=== PATIENT | male | born 1985 | race Caucasian/White ===

== ENCOUNTER 2021-02-12 11:47 | Emergency (ER) | payer BC, SELFPAY ==
[2021-02-12 11:50] VITALS: BP 134/70; PULSE 62; RESP 16; TEMP 36.5; O2SAT 100
--- NOTE | 2021-02-12 12:00 | RT.EKG_ITS ---
APPROVED REPORT Exam: Resting ECG Reason for Exam: syncope Patient Location: E HR:59 bpm ECG Measurements Heart Rate 59 AXIS KS 212 P 78 QRSd 98 QRS 94 QT 414 T 59 QTc 409 Conclusion Sinus bradycardia...rate< 60 Prolonged KS interval...KS >210, V-rate 50- 90 ST elev, probable normal early repol pattern...ST elevation, age<55. Sinus. Early Repol. No STEMI. I have reviewed and interpreted ECG and agree with software generated interpretation.
--- NOTE | 2021-02-12 12:04 | W.ED.GENAD ---
Discharge Plan Disposition Patient Disposition: HOME Condition: Improving Discharge Details Clinical Impression: Vasovagal syncope ED Provider: June Vegas Home Meds and New Rx's Prescriptions: No Action No Known Home Meds RF: 0 Discharge Instructions Instructions: Syncope (ED) Additional Instructions: Drink plenty of fluids and get plenty of rest. Alternate tylenol and motrin as needed and directed for pain. You will receive a call from care management regarding a follow-up appoint with the primary care doctor to establish care and for reevaluation. Return immediately to the emergency department if you develop any worsening or new concerning symptoms. 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 No STEMI, nondiagnostic. Vitals within normal limits. No acute findings on exam. No focal deficits. Suspect most likely vasovagal syncope. Will place an IV, bolus IV fluids, screening labs, chest x-ray, obtain orthostatic vital signs and reassess. Labs and imaging reviewed and unremarkable. Normal troponin. Chest x-ray negative. Orthostatic vital signs negative. Patient reassessed and he feels much better. Patient placed on care management list to help arrange for a follow-up appointment with the primary care doctor for reevaluation and to establish care. Usual and customary return precautions given prior to discharge. Medical Records Medical records reviewed: Yes I reviewed the patient's medical records. Imaging Data Radiologic Study: Radiologist's impression: XR CHEST 2V PA LATERAL CLINICAL HISTORY: syncope, r/o acute disease. TECHNIQUE: 2D digital imaging was performed. COMPARISON: No exams were available for comparison FINDINGS: Heart size is normal. The mediastinum is not widened. Lungs are clear. No infiltrates nor pleural effusions. IMPRESSION: No acute pulmonary findings. Lab Data Lab results reviewed: Yes I reviewed the patient's lab results. Labs: Laboratory Tests Range/Units 02/12/21 02/12/21 02/12/21 12:13 12:13 12:27 WBC (4.4-10.8) 10^3/uL 8.25 RBC (4.36-5.78) 10^6/uL 5.40 Hgb (13.5-17.5) g/dL 15.9 Hct (40.0-50.0) % 48.1 MCV (80-95) fL 89.1 MCH (27.0-33.0) pg 29.4 MCHC (32.0-36.0) % 33.1 RDW (11.8-14.1) % 12.3 Plt Count (130-400) 10^3/uL 247 MPV (8.0-11.0) fL 10.2 Immature Gran % 0.2 Neutrophils % 71.2 Lymphocytes % 23.6 Monocytes % 4.6 Eosinophils % 0.2 Basophils % 0.2 Nucleated RBC % % 0 Absolute Neutrophils (1.2-6.7) 10^3/uL 5.86 Absolute Lymphocytes (1.2-3.4) 10^3/uL 1.95 Absolute Monocytes (0.1-0.8) 10^3/uL 0.38 Absolute Eosinophils (0.0-0.7) 10^3/uL 0.02 Absolute Basophils (0.0-0.2) 10^3/uL 0.02 Sodium (136-145) mmol/L 140 Potassium (3.5-5.1) mmol/L 3.9 Chloride (98-107) mmol/L 102 Carbon Dioxide (21.0-32.0) mmol/L 32.0 Anion Gap (3-11) mmol/L 6.0 BUN (7-18) mg/dL 12 Creatinine (0.70-1.30) mg/dL 1.0 Estimated GFR/1.73 m2 (mL/min/1.73m2) >= 60.00 Glucose (74-106) mg/dL 106 Calcium (8.5-10.1) mg/dL 9.4 Total Bilirubin (0.2-1.0) mg/dL 1.5 H AST (15-37) U/L 18 ALT (16-63) U/L 21 Alkaline Phosphatase (46-116) U/L 62 Troponin I (<0.06) ng/mL < 0.05 Total Protein (6.4-8.2) g/dL 8.3 H Albumin (3.4-5.0) g/dL 4.5 ECG Data Attestation: I personally reviewed and interpreted this ECG (s) as follows: Interpretation: Rate of 59, sinus, prolonged VA interval. Benign early repolarization pattern. VA 212. QRS 98. QTc 409. HPI General Mode of arrival: ambulatory. Date/Time Provider Initiated Documentation: 02/12/21 12:01. Limitations to Documentation: no limitations. Information obtained by: patient. HPI Narrative: Patient is a 35-year-old male with no significant past medical history presents after syncopal episode just prior to arrival. 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 Patient states he was sitting in a chair when he suddenly became lightheaded and nauseous seeing this picture and then passed out. This was seen by other people in the class and they confirm helped lower him to the ground. They deny any report of injury. Bystanders say he was passed out for approximately 5 seconds. Patient remembers coming to when laying on the ground. He states he is currently asymptomatic. He does admit to a previous history of syncope while mowing the lawn out in the heat several years ago. He denies any recent illness, fever, new medications or injury. Prior to and during this episode today, he denies any chest pain, palpitations, shortness of breath, vomiting, headache or neck pain. Related Data Home Medications Medication Instructions Recorded Confirmed Unknown [No Known Home Meds] 02/12/21 02/12/21 Allergies Allergy/AdvReac Type Severity Reaction Status Date / Time No Known Allergies Allergy Verified 02/12/21 11:54 General Stated Complaint: Dizzy/Sync ROHINI: 3 Review of Systems All systems reviewed & are unremarkable except as noted in HPI and below Constitutional Constitutional: Reports as per HPI, Denies chills and Denies fever(s) Eyes Eyes: Denies blurry vision ENT Ears, Nose, Mouth, and Throat: Denies dizziness, Denies sore throat and Denies throat swelling Cardiovascular Cardiovascular: Denies chest pain and Denies dyspnea Respiratory Respiratory: Denies cough and Denies dyspnea Gastrointestinal Gastrointestinal: Denies abdominal pain, Denies diarrhea and Denies vomiting Genitourinary Genitourinary: Denies hematuria and Denies dysuria Musculoskeletal Musculoskeletal: Denies back pain and Denies numbness Integumentary/Breasts Skin/Breast: Denies lesions and Denies rash Neurologic Neurologic: Denies dizziness, Denies localized weakness and Denies numbness Allergic/Immunologic Allergic/Immunologic: Denies throat swelling [facility] Medical History (Updated 02/12/21 @ 14:28 by June Vegas DO) No significant past medical history Surgical History (Updated 02/12/21 @ 13:33 by June Vegas DO) No significant past surgical history Social History Smoking/Tobacco Use Status: Never Smoking risk assessment performed?: Yes Alcohol Intake: current Alcohol Intake frequency: 0-2 drinks per day Alcohol type: beer Drug use: Never Substance use type: does not use Do you feel safe at home: Yes Do you feel safe in your relationship?: Yes Exam Const General: cooperative, healthy appearing and no acute distress HENMT Head: normal to inspection Ears: hearing grossly normal bilaterally, external ears normal and TM's normal bilaterally General nose exam: external nose normal Face and sinus: normal facial exam Eyes General: appearance normal, both eyes and all related structures Pupils: PERRL EOM: EOM intact bilaterally Neck Neck: normal visual inspection and No submandibular swelling Lymphatic: no lymphadenopathy noted Chest Chest: normal inspection of the chest and no tenderness Resp Effort & Inspection: normal respiratory effort and able to speak in complete sentences Auscultation: clear to auscultation bilaterally Cardio Rate: regular rate Rhythm: regular rhythm GI Inspection: normal to inspection Palpation: soft, not firm, not rigid and nontender Auscultation: normal bowel sounds Skin General skin exam: no rashes or lesions noted Neuro General: patient alert, patient awake, patient oriented x3, moves all extremities, no meningeal signs and no focal motor deficits Cranial Nerves: CN's II-XI intact bilaterally Cognition: normal cognition Speech: speech normal Motor: muscle tone normal throughout, strength 5/5 throughout and no pronator drift Sensory Exam: no sensory deficits noted Extrem General: normal to inspection, full ROM, capillary refill normal, no calf tenderness bilaterally and no edema Psych Appearance: grossly normal Mental Status: mental status grossly normal Speech and Movement: speech and movement normal Affect: normal affect Course Vital Signs Vital signs: Vital Signs Temperature 97.7 F 02/12/21 11:50 Pulse 62 02/12/21 11:50 Respiratory Rate 16 02/12/21 11:50 Blood Pressure 134/70 02/12/21 11:50 Pulse Oximetry 100 02/12/21 11:50 Temperature 97.7 F 02/12/21 11:50 Temperature Source Temporal Artery Scan 02/12/21 11:50 Pulse 62 02/12/21 11:50 Respiratory Rate 16 02/12/21 11:50 Respiratory Effort Non-Labored 02/12/21 11:55 Blood Pressure 134/70 02/12/21 11:50 Blood Pressure Position Sitting 02/12/21 11:50 Pulse Oximetry 100 02/12/21 11:50 Oxygen Delivery Method Room Air 02/12/21 11:50 Oxygen Flow Rate 0 02/12/21 11:50 Pain Level 0 02/12/21 11:50
[2021-02-12 12:24] VITALS: PULSE 64; RESP 10
[2021-02-12 12:25] VITALS: BP 135/70; PULSE 64; RESP 14
--- NOTE | 2021-02-12 12:30 | DI.RAD_ITS ---
Exam(s) XR CHEST 2V PA LATERAL EXAM: XR CHEST 2V PA LATERAL CLINICAL HISTORY: syncope, r/o acute disease. TECHNIQUE: 2D digital imaging was performed. COMPARISON: No exams were available for comparison FINDINGS: Heart size is normal. The mediastinum is not widened. Lungs are clear. No infiltrates nor pleural effusions. IMPRESSION: No acute pulmonary findings. DATA REPOSITORY: RADIATION DOSE DELIVERED:
[2021-02-12 12:32] LABS: Abs Immature Grans 0.02 10^3/uL (0.0-0.06); Absolute Basophil Count 0.02 10^3/uL (0.0-0.2); Absolute Eosinophil Count 0.02 10^3/uL (0.0-0.7); Absolute Lymphocyte Count 1.95 10^3/uL (1.2-3.4); Absolute Monocyte Count 0.38 10^3/uL (0.1-0.8); Absolute Neutrophil Count 5.86 10^3/uL (1.2-6.7); Basophils % 0.2; Eosinophils % 0.2; HCT 48.1 % (40.0-50.0); HGB 15.9 g/dL (13.5-17.5); Immature Grans % 0.2; Lymphocytes % 23.6; MCH 29.4 pg (27.0-33.0); MCHC 33.1 % (32.0-36.0); MCV 89.1 fL (80-95); MPV 10.2 fL (8.0-11.0); Monocytes % 4.6; Neutrophils % 71.2; Nucleated RBC 0 %; Platelet Count 247 10^3/uL (130-400); RDW 12.3 % (11.8-14.1); RDW-SD 40.4 fL; WBC 8.25 10^3/uL (4.4-10.8)
[2021-02-12 12:47] LABS: ALT 21 U/L (16-63); AST 18 U/L (15-37); Albumin 4.5 g/dL (3.4-5.0); Alkaline Phosphatase 62 U/L (46-116); BUN 12 mg/dL (7-18); Bilirubin, Total 1.5 mg/dL (0.2-1.0); Calcium 9.4 mg/dL (8.5-10.1); Chloride 102 mmol/L (98-107); Glucose 106 mg/dL (74-106); Potassium 3.9 mmol/L (3.5-5.1); Sodium 140 mmol/L (136-145); Total Protein 8.3 g/dL (6.4-8.2)
[2021-02-12 12:47] LABS: Troponin I < 0.05 ng/mL (<0.06)
[2021-02-12 12:50] VITALS: BP 116/66; BP 119/75; BP 127/80; PULSE 62; PULSE 74
[2021-02-12 14:50] VITALS: BP 120/71; PULSE 68; RESP 20; TEMP 37.1; O2SAT 100
--- NOTE | 2021-02-12 15:11 | NUR.NOTE ---
Nursing Note: Referral given to Care Management to establish care w/PCP, vasovagal syncope, in one week. Vero Franklin
== END 2021-02-12 14:54 | disposition home or self-care (01) ==
PROVIDERS: Emergency Provider Physician Assistant
DX: R55 Syncope and collapse (principal)
CPT/HCPCS: 36415; 80053; 93005; 99285; 71046; 84484; 85025; 93010; 99284